=== PATIENT | female | born 1985 | race Caucasian/White ===

== ENCOUNTER → 2023-08-15 08:19 | Outpatient (REF) | payer OTHER, SELFPAY | LOC: PAVMRI 08:19 | PROVIDERS: ATTENDING PHYSICIAN Psychiatry & Neurology Neurology; FAMILY PHYSICIAN Physician Assistant Medical | DX: H53.8 Other visual disturbances (principal) | CPT/HCPCS: 70553; A9575 ==

== ENCOUNTER → 2023-10-04 16:38 | Outpatient (REF) | payer OTHER, SELFPAY | LOC: HWRAD 16:38 | PROVIDERS: ATTENDING PHYSICIAN Internal Medicine; FAMILY PHYSICIAN Physician Assistant Medical; REFERRING PHYSICIAN Psychiatry & Neurology Neurology | DX: M54.9 Dorsalgia, unspecified (principal) | CPT/HCPCS: 72070; 72100 ==

== ENCOUNTER → 2023-10-10 15:10 | Outpatient (REF) | payer OTHER, SELFPAY | LOC: PAVMRI 15:10 | PROVIDERS: ATTENDING PHYSICIAN Internal Medicine; FAMILY PHYSICIAN Physician Assistant Medical | DX: M89.9 Disorder of bone, unspecified (principal) | CPT/HCPCS: 72195 ==

== ENCOUNTER 2024-07-20 10:13 | Emergency (ER) | payer BC, SELFPAY ==
[2024-07-20 10:20] VITALS: BP 111/77
--- NOTE | 2024-07-20 12:29 | ED.GENMED ---
History of Present Illness
General
Chief Complaint: Musculo-Skeletal Complaint
Source: patient
Exam Limitations: none
Time Seen by Provider: 07/20/24 11:46
Nursing documentation reviewed up to this point in time: agreed with
History of Present Illness
History of Present Illness:
Patient is a 38 old female who presents to the ER for evaluation. Patient has a history of rheumatoid arthritis is on Plaquenil and does have chronic issues in her neck. Patient reports however she has had URI symptoms for the past 1 week
including nasal congestion, cough ,low-grade fever. She reports that she believes she may have pulled her neck while coughing. She now has pain to the right side of her neck worse with coughing or movement. She does feel that it is shooting into
her head. she denies any trauma denies any chiropractic manipulation. She denies any dizziness. Denies any vertigo. Denies any upper or lower extremity numbness tingling,weakness. She went to urgent care was recommended to come to the ER for
a ct scan . she reports cough is actually getting better. Patient does report she is aware that she has a diagnosis of Chiari malformation.
Past History
Past History
ED Past Medical History: GERD
ED Past Surgical History: None
Social History
Tobacco: Smoker
Review of Systems
Review of Systems
Allergies reviewed?: Yes
All Other Systems: ROS reviewed and negative except as documented in HPI and ROS
Constitutional: Reports no symptoms; Denies fever, fatigue or chills
EENT: Reports no symptoms
Respiratory: Reports cough; Denies trouble breathing
Cardiac: Reports no symptoms
ABD/GI: Reports no symptoms
: Reports no symptoms
Musculoskeletal: Reports neck pain
Skin: Reports no symptoms
Hematologic/Lymphatic: Reports no symptoms
Psychiatric: Reports no symptoms
Phy Exam
General Physical Exam
General Presentation: no apparent distress
General age: appears stated age
General Skin: warm and dry
General Habitus: normal
General Mental: alert
General Hydration: appears well hydrated
ENT Exam
ENT Exam: neck supple
Eye Exam
Eye Exam: PERRL and EOMI
Eye Exam General: PERRL: bilateral and EOM intact: bilateral
Pupil Exam: Bilateral: round and reactive
Cardiovascular Exam
Cardiovascular Exam: regular rate/rhythm, no murmur and normal peripheral pulses
Pulmonary Exam
Pulmonary Exam: lungs clear and no respiratory distress
Neurological Exam
Neurological Exam: alert and oriented x3
Musculoskeletal Exam
Musculoskeletal Exam: full ROM and other (mildly tender to posterior neck muscles , 'sore ' with movement )
Skin Exam
Skin Exam: normal color and warm/dry
Psychiatric Exam
Psychiatric Exam: normal mood/affect
Course
Orders/Labs/Results
Orders:
Orders
07/20/24 12:30
CT Head W/o Iv Contrast Urgent
Comment:
Reason For Exam: headache
07/20/24 12:31
IV Insert/Care/Rem.- Treatment PRN
0.9% Sodium Chloride 1000 ml [Nss] 1,000 ml IV BOLUS
Ketorolac [Toradol] 15 mg IV NOW STA
diazePAM [Valium Injection] 2 mg IV NOW STA
07/20/24 12:45
COVID-19 Antigen Urgent
Source: Nasal Swab
Complete Blood Count/With Diff Urgent
Comprehensive Metabolic Panel Urgent
Influenza A+B Rapid Molecular Urgent
ADALGISA Source: Nasal Swab
Specimen Description:
07/20/24 14:32
Vital Signs- Treatment ONCE
Frequency: Once
Abnormal Lab Results
07/20/24
12:45
RBC 4.06 L 10^6/uL
(4.20-5.40)
MCH 31.5 H pg
(27.0-31.0)
Chloride 108 H mmol/L
(98-107)
BUN 4 L mg/dl
(7-17)
07/20/24 12:45
07/20/24 12:45
Vital Signs
Initial and Last Documented VS:
Initial Vital Signs
Temp Pulse Resp BP Pulse Ox
98.2 F 69 16 111/77 98
07/20/24 10:20 07/20/24 10:20 07/20/24 10:20 07/20/24 10:20 07/20/24 10:20
Last Documented Vital Signs
Temp Pulse Resp BP Pulse Ox
98.2 F 72 18 112/70 100
07/20/24 10:20 07/20/24 14:31 07/20/24 14:31 07/20/24 14:31 07/20/24 14:31
MDM/Problems Addressed
Differential Diagnosis Includes:
Not limited to muscular neck pain, URI
MDM/Problems Addressed:
Symptoms are consistent with muscular neck pain likely from coughing. Patient with recent viral symptoms Likely causing headache. There is no meningismus on exam she is well-appearing, patient is very nontoxic in no acute distress. No recent
trauma.
I did review patient's imaging from previous. I reviewed her cervical spine MRI from 2022 , it is documented she has low-lying cerebellar tonsils but no formal diagnosis of Chiari.
Patient received Valium here , pt feeling much better.
Will DC with instructions to alternate ibuprofen Tylenol heat and Flexeril close outpatient follow-up with her doctor.
Chronic conditions affecting care:
RA on Plaquenil
*Radiology
Radiology exam reviewed: radiology read reviewed
*Pulse Oximetry
Patient hypoxic: no
*Critical Care Note
Total Time (30-74mins, 75-104mins- exclusive of procedures): Not Applicable
ED Attending Note
-
Portions of this chart may have been created with voice recognition software.� Occasional wrong word or��sound alike� substitutions may have occurred due to the inherent limitations of voice recognition software.
Discharge Plan
Departure
Patient Disposition: Home (Routine Discharge)
Date of Disposition: 07/20/24
Time of Disposition: 14:36
Patient with high blood pressure during this ER visit?: No
Condition: Fair
Covid-19: Not Applicable
Discharge Problem:
Acute viral syndrome
Instructions: Muscle, joint, and bone pain - Discharge instructions, Upper Respiratory Infection - Adult
Prescriptions:
New
cyclobenzaprine 10 mg tablet
10 mg PO TID PRN (Reason: muscle pain) Qty: 10 0RF
No Action
metronidazole 500 MG tablet
500 mg PO TID Qty: 21 0RF
ciprofloxacin HCl 500 MG tablet
500 mg PO BID Qty: 14 0RF
Referrals:
UNKNOWN - PT NOT,INTERVIEWE [Unknown Provider]
Activity Restrictions/Additional Instructions:
As discussed it is likely you have a viral syndrome and neck pain is from muscle pain related to coughing. You May alternate between ibuprofen and Tylenol. You may apply warm moist heat to affected area. A prescription for Flexeril sent to your
pharmacy take as directed. This will cause drowsiness. No driving or drink alcohol with taking this medication. Please closely follow-up with family doctor the next 1 -2 days for reevaluation.
return if any worsening of symptoms
Interventions
Interventions:
*Risk Screen - Suicide Last Done: 07/20/24 11:32
*General Assessment Last Done: 07/20/24 11:32
*Neglect/Abuse Screening Last Done: 07/20/24 11:32
*ED- Fall Risk Assessment Last Done: 07/20/24 11:32
*ED COVID-19 Vaccine History Last Done: 07/20/24 11:32
ED-Musculoskeletal Assessment Last Done: 07/20/24 11:34
Discharge Date and Time
Print Language: BULGARIAN
[2024-07-20] MEDS: TORADOL 15 MG IV (12:46)
[2024-07-20] MEDS: VALIUM INJECTION 2 MG IV (12:47)
[2024-07-20] MEDS: NSS 1000 IV (12:47)
[2024-07-20 12:58] LABS: % Basophils 0.6 % (0-2); % Immature Granulocytes 0.2 % (0-0.5); % Monocytes 7.6 % (1.7-9.3); % Neutrophils 66.6 % (42.2-75.2); Absolute Basophils 0.1 10^3/uL (0-0.2); Absolute Eosinophils 0.1 10^3/uL (0-0.7); Absolute Lymphocytes 1.9 10^3/uL (1.2-3.4); Absolute Monocytes 0.6 10^3/uL (0.1-0.6); Absolute Neutrophils 5.4 10^3/uL (1.4-6.5); Hematocrit 38.4 % (37.0-47.0); Hemoglobin 12.8 g/dL (12.0-16.0); Mean Corp Hgb Conc. 33.3 g/dL (33.0-37.0); Mean Corpuscular Hgb 31.5 pg (27.0-31.0); Mean Corpuscular Volume 94.6 fL (81.0-99.0); Mean Platelet Volume 10.3 fL (7.4-10.4); Nucleated Red Blood Cells % 0 %; Platelet Count 312 10^3/uL (130-400); Red Blood Cell Count 4.06 10^6/uL (4.20-5.40); White Blood Cell Count 8.1 10^3/uL (4.8-10.8)
[2024-07-20 13:10] LABS: ALT (SGPT) 23 U/L (0-35); AST (SGOT) 21 U/L (14-36); Albumin 4.3 g/dl (3.5-5.0); Alkaline Phosphatase 49 U/L (38-126); Blood Urea Nitrogen 4 mg/dl (7-17); Calcium 9.6 mg/dl (8.4-10.2); Carbon Dioxide 26 mmol/L (22-30); Chloride 108 mmol/L (98-107); Glucose 93 mg/dl (70-99); Potassium 4.1 mmol/L (3.5-5.1); Sodium 141 mmol/L (135-145); Total Bilirubin 0.6 mg/dl (0.2-1.3); Total Protein 7.2 g/dl (6.3-8.2); eGFR > 60.00
[2024-07-20 13:19] LABS: COVID-19 Antigen Negative (Negative)
[2024-07-20 14:31] VITALS: BP 112/70
== END 2024-07-20 14:47 | disposition home or self-care (01) ==
LOC: EMR 10:13
PROVIDERS: Nurse Practitioner; EMERGENCY PHYSICIAN Emergency Medicine; FAMILY PHYSICIAN Physician Assistant Medical
DX: B34.9 Viral infection, unspecified (principal); M06.9 Rheumatoid arthritis, unspecified; F17.200 Nicotine dependence, unspecified, uncomplicated; Z11.52 Encounter for screening for COVID-19; Z79.899 Other long term (current) drug therapy
CPT/HCPCS: 96374; 96375; 96361; 99284; 70450; 80053; 85025; 87502; 87811